=== PATIENT | female | born 1995 | race Caucasian/White ===

== ENCOUNTER 2024-02-09 10:07 | Emergency (ER) | payer OTHER ==
[~2024-02-09] VITALS: Ht 165.1 cm; Wt 71.7 kg
[2024-02-09 10:15] VITALS: BP_SYST 113; PULSE 79; RESP 16; TEMP 98.4; O2SAT 99
[2024-02-09 11:17] LABS: ERYTHROCYTE SEDIMENTATION RATE 4 MM/HR (0-20)
[2024-02-09 11:21] LABS: BASOPHILS % (AUTO) 0.6 % (0.0-2.0); EOSINOPHILS # (AUTO) 0.1 K/uL (0.0-0.4); HEMATOCRIT 37.2 % (36-48); HEMOGLOBIN 12.5 g/dL (12.0-16.0); LYMPHOCYTES # (AUTO) 1.3 K/uL (1.0-5.5); LYMPHOCYTES % (AUTO) 18.5 % (20.5-51.5); MEAN CORPUSCULAR HEMOGLOBIN 30 pg (27-31); MEAN CORPUSCULAR HGB CONC 34 % (32-36); MEAN CORPUSCULAR VOLUME 89 fL (79.0-98.0); MONOCYTES # (AUTO) 0.6 K/uL (0.0-1.0); MONOCYTES % (AUTO) 9.5 % (1.7-9.3); NEUTROPHILS # (AUTO) 4.8 K/uL (1.8-7.7); NEUTROPHILS % (AUTO) 70.4 % (40.0-70.0); PLATELET COUNT (AUTO) 279 K/uL (130-430); RED CELL DISTRIBUTION WIDTH 14.3 % (9.0-15.0); WHITE BLOOD COUNT (AUTO) 6.8 K/uL (4.8-10.8)
[2024-02-09 11:28] LABS: SERUM HCG (QUALITATIVE) NEGATIVE (NEGATIVE)
[2024-02-09 11:33] LABS: PROTHROMBIN TIME 10.6 SECS (9.5-12.5)
[2024-02-09 11:44] LABS: CALCIUM 8.4 mg/dL (8.4-11.0); CREATININE 0.64 mg/dL (0.55-1.30); POTASSIUM 4.5 mmol/L (3.5-5.1); URIC ACID 3.6 mg/dL (2.4-7.0)
[2024-02-09] MEDS ORDERED: IBUP-1969 PO (12:30)
[2024-02-09] MEDS ORDERED: HYDR-3917 PO (12:30)
[2024-02-09 12:45] VITALS: BP_SYST 113; PULSE 79; RESP 16; TEMP 98.4; O2SAT 99
== END 2024-02-09 12:45 | disposition home or self-care (01) ==
LOC: SED 10:07
DX: M25.512 Pain in left shoulder (principal)
CPT/HCPCS: 36415; 73030; 80048; 81025; 84550; 84703; 85025; 85610; 85651; 85730; 99284